=== PATIENT | female | born 1955 | race African-American/Black ===

== ENCOUNTER 2016-12-01 15:35 | Emergency (ER) | payer MEDICARE, MEDICAID ==
[~2016-12-01] VITALS: Ht 170.2 cm; Wt 105.0 kg
[~2016-12-01 15:35] MED LIST: BACTRIM DS1 TAB PO; CIPRO500 MG OR; GLIPIZIDE ER5 MG PO; HYDROCHLOROT12.5 MG OR; LORTAB 5 OR; LORTAB5 OR; LOSARTAN/HCT1 TA2 PO; LOTENSIN5 MG OR; METFORMIN500 MG OR; METFORMIN500 MG PO; NAPROSYN500 MG OR; NO HOME MEDS; NORCO1 TA1 PO; PROTONIX40 M2 PO; PYRIDIUM200 MG OR; TOUJEO SOL300 UNIT/M SC; UNKNOWN BP MED; ZPAK OR
[2016-12-01 16:39] VITALS: BP 157/89
== END 2016-12-01 16:52 | disposition home or self-care (01) ==
LOC: ED 15:35
DX: E11.65 Type 2 diabetes mellitus with hyperglycemia (principal); I10 Essential (primary) hypertension; E03.9 Hypothyroidism, unspecified; F17.210 Nicotine dependence, cigarettes, uncomplicated; Z79.4 Long term (current) use of insulin; Z59.1 Inadequate housing

== ENCOUNTER 2016-12-02 10:53 | Emergency (ER) | payer MEDICARE, MEDICAID ==
[~2016-12-02] VITALS: Ht 170.2 cm; Wt 105.0 kg
[2016-12-02 11:30] VITALS: BP 166/87
== END 2016-12-02 11:30 | disposition home or self-care (01) ==
LOC: ED 10:53
DX: E11.9 Type 2 diabetes mellitus without complications (principal); I10 Essential (primary) hypertension; E03.9 Hypothyroidism, unspecified; F17.210 Nicotine dependence, cigarettes, uncomplicated; Z79.4 Long term (current) use of insulin; Z59.1 Inadequate housing

== ENCOUNTER 2016-12-19 12:36 | Emergency (ER) | payer OTHER, MEDICARE, MEDICAID ==
[~2016-12-19] VITALS: Ht 170.2 cm; Wt 104.5 kg
[2016-12-19] MEDS ORDERED: LORTAB 5-325 MG1 TAB PO (12:46)
[2016-12-19] MEDS ORDERED: EC-NAPROSYN500 MG PO (12:46)
[2016-12-19 14:42] VITALS: BP 160/80
== END 2016-12-19 13:46 | disposition home or self-care (01) | DRG 605 ==
LOC: ED 12:36
DX: S80.02XA Contusion of left knee, initial encounter (principal); M25.461 Effusion, right knee; V43.62XA Car passenger injured in collision with other type car in traffic accident, initial encounter; Y92.481 Parking lot as the place of occurrence of the external cause

== ENCOUNTER 2018-07-19 21:45 | Emergency (ER) | payer MEDICARE, MEDICAID ==
[~2018-07-19] VITALS: Ht 170.2 cm; Wt 104.6 kg
[~2018-07-19 21:45] MED LIST changes: +EC-NAPROSYN500 MG PO; +LORTAB 5-325 MG1 TAB PO
[2018-07-19] MEDS ORDERED: PERCOCET 5/325M1 TAB PO (22:57)
[2018-07-19] MEDS ORDERED: GENTAMICIN0.3 % OD (22:57)
[2018-07-19 23:25] VITALS: BP 152/77
== END 2018-07-19 23:21 | disposition home or self-care (01) ==
LOC: ED 21:45
DX: H10.9 Unspecified conjunctivitis (principal); I10 Essential (primary) hypertension; E11.9 Type 2 diabetes mellitus without complications; F17.200 Nicotine dependence, unspecified, uncomplicated

== ENCOUNTER 2020-12-11 14:33 | Emergency (ER) | payer OTHER, MEDICARE, MEDICAID ==
[~2020-12-11] VITALS: Ht 170.2 cm; Wt 104.5 kg
[~2020-12-11 14:33] MED LIST changes: +GENTAMICIN0.3 % OD; +PERCOCET 5/325M1 TAB PO
[2020-12-11 15:55] VITALS: BP 158/85
== END 2020-12-11 15:55 | disposition home or self-care (01) | DRG 563 ==
LOC: ED 14:33
DX: S46.912A Strain of unspecified muscle, fascia and tendon at shoulder and upper arm level, left arm, initial encounter (principal); I10 Essential (primary) hypertension; E11.9 Type 2 diabetes mellitus without complications; F17.200 Nicotine dependence, unspecified, uncomplicated; V43.52XA Car driver injured in collision with other type car in traffic accident, initial encounter; Z79.4 Long term (current) use of insulin

== ENCOUNTER 2021-05-06 07:54 | Inpatient (IN) | payer MEDICARE, MEDICAID ==
[~2021-05-06] VITALS: Ht 170.2 cm; Wt 91.0 kg
[2021-05-06 08:07] VITALS: BP 128/72
--- NOTE | 2021-05-06 08:19 | NUR ---
PT ESCORTED TO ROOM FOR EVALUATION OF ABDOMINAL PAIN, N/V/D SINCE TESTING POS FOR COVID TWO DAYS PRIOR
[2021-05-06 08:41] LABS: HEMATOCRIT 53.5 % (37.0-47.0); HEMOGLOBIN 17.5 g/dl (12.0-16.0); IMMATURE GRANULOCYTES 0.8 % (0.0-5.0); MEAN CELL VOLUME 94.7 fL CALC (80.0-100.0); MEAN CORPUSCULAR HGB CONC 32.7 g/dL CAL (32.0-36.0); NEUT# 3.42 thou/uL (2.00-7.15); RED BLOOD COUNT 5.65 mill/uL (4.20-5.60); RED CELL DISTRI WIDTH 12.7 % (11.5-15.5)
[2021-05-06 08:45] LABS: ALKALINE PHOSPHATASE 101 u/l (38-126); BILIRUBIN, TOTAL 0.5 mg/dL (0.0-1.4); BUN 12 mg/dL (8-23); BUN/CREATININE RATIO 12 (12-20 (CALC)); CARBON DIOXIDE 26 mmol/l (22-30); CHLORIDE 95 mmol/l (95-108); GFR 55 ML/MIN (>=60 (CALC)); GFR FOR AFR.AMER. > 60 ML/MIN (>=60 (CALC)); LIPASE 180 u/l (23-300); TOTAL PROTEIN 7.1 g/dL (6.3-8.2)
[2021-05-06 08:46] VITALS: BP 126/74
[2021-05-06 08:46] LABS: URINE BILIRUBIN - DIPSTICK NEGATIVE (NEGATIVE); URINE BLOOD DIPSTICK SMALL (NEGATIVE); URINE COLOR YELLOW; URINE GLUCOSE - DIPSTICK NEGATIVE (NEGATIVE); URINE KETONE TRACE mg/dL (NEGATIVE); URINE LEUK ESTERASE NEGATIVE (NEGATIVE); URINE NITRITE - DIPSTICK NEGATIVE (Negative); URINE PROTEIN - DIPSTICK >=300 mg/dL (NEG-TRACE); URINE SPECIFIC GRAVITY 1.015; URINE UROBILINOGEN - DIPSTICK 0.2 E.U./dL (0.2)
[2021-05-06 08:47] LABS: URINE EPITHELIAL CELLS FEW EPI/hpf (0-FEW)
[2021-05-06 08:48] LABS: ALBUMIN 3.2 g/dL (3.2-5.0); ANION GAP 14 (6-22 (CALC)); POTASSIUM 5.3 mmol/l (3.5-5.1); SGOT/AST 86 u/l (9-36); SODIUM 130 mmol/l (137-146); URINE BACTERIA FEW hpf; URINE RBC 0-2 RBC/hpf (0-5); URINE WBC 0-2 WBC/hpf (0-5)
--- NOTE | 2021-05-06 09:20 | NUR ---
Reassessment of patient completed. No distress noted.
--- NOTE | 2021-05-06 10:20 | NUR ---
Reassessment of patient completed. No distress noted.
--- NOTE | 2021-05-06 11:40 | NUR ---
PT ADVISED OF WAIT TIME. UP TO BSC, ASKS TO SIT FOR A LITTLE LONGER. PT ASKS FOR SOMETHING TO EAT, INSTRUCTED THAT WILL HAVE TO CHECK WITH PHYSICIAN. WILL CHECK BACK SOON.
--- NOTE | 2021-05-06 12:30 | NUR ---
Reassessment of patient completed. No distress noted.
--- NOTE | 2021-05-06 13:13 | NUR ---
Reassessment of patient completed. No distress noted. PATIENT PROVIDED WITH LUNCH TRAY AND ASSISTED TO SIT IN THE CHAIR BEDSIDE FOR COMFORT. PATIENT ASSISTED TO AMBULATE TO STRETCH LEGS.
--- NOTE | 2021-05-06 14:56 | NUR ---
ACCUCHECK COMPLETED. RESULT 336. NOTIFIED MD OF STATUS. PATIENT ALERT AND ORIENTED AND ASSISTED TO USE BEDSIDE COMMODE
--- NOTE | 2021-05-06 15:30 | NUR ---
Reassessment of patient completed. No distress noted.
--- NOTE | 2021-05-06 16:30 | NUR ---
PATIENT ESCORTED UPSTAIRS TO ROOM VIA WHEELCHAIR AFTER CALLING REPORT TO NURSE.
--- NOTE | 2021-05-06 17:22 | NUR ---
RECEIVE REPORT FROM DONOVAN MCCABE ED NURSE. PATIENT ALERT AND ORIENTED X3 AT THIS TIME. NO DISTRESS RESPIRATORY NO REPORT PAIN. EDUCATED ABOUT ADMISSION, MEDICATIONS AND NURSE PLAN OF CARE. PATIENT REPORT UNDERSTAND.
[2021-05-06 19:00] VITALS: BP 152/67
--- NOTE | 2021-05-06 19:00 | NUR ---
RECEIVED SHIFT CHANGE REPORT FROM ESTELLE GORMAN. ASSUMED CARE OF PATIENT.
--- NOTE | 2021-05-06 23:56 | NUR ---
PT LAYING IN BED TURNED ON TO LEFT SIDE, RESTING WITH EYES CLOSED. NO S/SX OF DISTRESS OR DISCOMFORT OBSERVED AT THIS TIME. TELE MONITOR IN PLACE. BED IN LOWEST POSITION, BREAKES ON AND SIDE RAILS UP X 2. CALL LIGHT WITHIN REACH, WILL CONTINUE TO MONITOR.
[2021-05-07] VITALS: BP 116/53
[2021-05-07 04:00] VITALS: BP 148/75
--- NOTE | 2021-05-07 06:18 | NUR ---
THROUGH OPERATOR AT BEDSIDE, ASSISTING PT WITH A SHOWER.
[2021-05-07 06:32] LABS: MEAN CELL VOLUME 96.2 fL CALC (80.0-100.0); MEAN CORPUSCULAR HGB 30.9 pG CALC (26.0-32.0); MEAN CORPUSCULAR HGB CONC 32.1 g/dL CAL (32.0-36.0); NEUT# 4.92 thou/uL (2.00-7.15); RED BLOOD COUNT 5.82 mill/uL (4.20-5.60); RED CELL DISTRI WIDTH 12.8 % (11.5-15.5)
[2021-05-07 07:03] LABS: ALBUMIN 3.1 g/dL (3.2-5.0); ALKALINE PHOSPHATASE 84 u/l (38-126); ANION GAP 16 (6-22 (CALC)); BILIRUBIN, TOTAL 0.5 mg/dL (0.0-1.4); BUN 13 mg/dL (8-23); BUN/CREATININE RATIO 16 (12-20 (CALC)); C-REACTIVE PROTEIN 4.2 mg/dL (0-0.9); CARBON DIOXIDE 20 mmol/l (22-30); CHLORIDE 102 mmol/l (95-108); CREATININE 0.8 mg/dL (0.5-1.0); GFR > 60 ML/MIN (>=60 (CALC)); GFR FOR AFR.AMER. > 60 ML/MIN (>=60 (CALC)); POTASSIUM 5.4 mmol/l (3.5-5.1); SGOT/AST 73 u/l (9-36); SODIUM 133 mmol/l (137-146); TOTAL PROTEIN 6.9 g/dL (6.3-8.2)
[2021-05-07 07:08] LABS: IMMATURE GRANULOCYTES 0.7 % (0.0-5.0)
--- NOTE | 2021-05-07 08:00 | NUR ---
ASSESSMENT DONE. PATIENT IS ALERT AND ORIENT X3. PATIENT STATES SHE HAS BURNING IN HER ABD AND TOLD PATIENT I WILL NOTIFIED MD. RESPS EVEN AND UNLABORED. TELE IN PLACE. PATIENT DENIES ANY OTHER NEEDS AT THIS TIME. CALL LIGHT IN REACH.
[2021-05-07 11:15] VITALS: BP 149/80
[2021-05-07 15:33] VITALS: BP 162/89
--- NOTE | 2021-05-07 15:38 | NUR ---
nurse notified of patient blood pressure 169/89. will recheck.
--- NOTE | 2021-05-07 16:30 | NUR ---
PATIENT IS RESTING ON HER LEFT SIDE IN BED. PATIENT DENIES PAIN. PATIENT STATED SHE WAS ABLE TO SLEEP. PATIENT DENIES NEEDS. CALL LIGHT IN REACH.
--- NOTE | 2021-05-07 19:00 | NUR ---
RECIEVED REPORT FROM ESTELLE HASSAN
--- NOTE | 2021-05-07 19:00 | NUR ---
RECIEVED REPORT FROM ESTELLE MESA
[2021-05-07 19:51] VITALS: BP 150/71
--- NOTE | 2021-05-07 20:30 | NUR ---
PT RESTING IN SEMI FOWLERS POSITION. PT IS A/OX3. ASSESSMENT COMPLETED. RESPIRATIONS EVEN AND UNLABORED. LUNG SOUNDS CLEAR. HEART RHYTHM NORMAL WTIH TELE IN PLACE. BOWEL SOUNDS ACTIVE, LOOSE STOOLS REPORTED. PT INFORME OF NEEDED STOOL SAMPLE. #20G LAC INFUSING WITH IVF PER ORDER, SITE PATENT. SKIN INTACT. PT COMPLAINS OF BURNING IN ABD. PT TO BE MEDICATED PER EMAR. GLUCOSE MONITORING RESULTS IN 239, COVERAGE PER ORDER. PT DENIES OF ANY ADDITIONAL NEEDS. ALL SAFTEY PRECAUTIONS ARE IN PLACE WITH CALL LIGHT IN REACH. WILL CONTINUE TO MONITOR.
--- NOTE | 2021-05-07 22:56 | NUR ---
PT MEDICATED WITH BENTAYL AND TYLENOL AT THIS TIME DUE TO ABD PAIN. PT TOLERATED WELL
[2021-05-07 23:55] VITALS: BP 179/116
--- NOTE | 2021-05-07 23:55 | NUR ---
PT INFORMED BY ESTELLE FRYE THAT PT AFIB RVR ON TELE. PT RESTING IN SEMI FOWLERS POSITION. RESPIRATIONS EVEN AND UNLABORED. PT STATES NO CHANGES.VITALS OBTAINED. BP 161/112, HR 120-150. RT AT BEDSIDE FOR EKG. AFIB RVR PER EKG.
[2021-05-08] VITALS (42 sets, daily range): BP systolic 115–207; BP diastolic 58–113
--- NOTE | 2021-05-08 | NUR ---
PT TRANSFERED TO ICU BED 2 VIA STRETCHER ACCOMPAINED BY DOCUMENTATION SPECIALIST AND EKG TECHNICIAN WITH ALL PERSONAL BELONGINGS . REPORT GIVEN TO ESTELLE GRIJALVA.
--- NOTE | 2021-05-08 00:14 | NUR ---
LINDA, RN AT BEDSIDE TO ADMINISTER CARDIZEM PUSH. FIRST 10 ADMINISTERED. BP 188/72, HR 148. REMAINING 10 ADMINISTERED. BP 168/70, HR 102. PT REMAINS ASYMPTOMATIC. DENIES OF ANY CHANGES. O2 SAT 88-91%, 2L NC, O2 92-94% WILL CONTINUE TO MONITOR
--- NOTE | 2021-05-08 00:44 | NUR ---
PT REMAINS RESTING IN SEMI FOWLERS POSITION. PT REMAINS AFIB 120-130S ON MONITOR. BP 163/81, O2 95%. PT STATES BREATHING " FELLS BETTER" REMAINS ASYMPTOMIC. DR AJ INFORMED. ORDERS TO TRANSFER TO ICU ON CARDIZEM DRIP. ICU BED 2 OBTAINED.
--- NOTE | 2021-05-08 01:00 | NUR ---
PATIENT ARRIVED VIA HOSPITAL BED TO ROOM ICU2 ALERT ORIENTED X4 ACCOMPANIED BY NURSE BEDSIDE REPORT RECIEVED. PATIENT PLACED ON MONITOR CARDIAC RYHTHM SHOWS AFIB WITH RAPID VENTICULAR RESPONSE 150 -160'S CARIZEM DRIP INITIATED AT 10 MG/HR PATIENT FAMILY CALLED AND NOTIFIED OF TRANSFER TO ICU. COMFORT MEASURES PROVIDED TO REDUCE ANXIETY ORIENTED TO ROOM CALL LIGHT AND PLAN OF CARE.QUIET ROOM ENVIRONMENT PROVIDED TO PROMOTE REST.
--- NOTE | 2021-05-08 01:22 | NUR ---
PT TRANSFERED TO ICU BED 2 IN STABLE CONDITION VIA BED ACCOMAPINED BY AND HANSEL MORALES WITH ALL PERSONAL BELONINGS. REPORT GIVEN TO Abelino CARROLL RN.
--- NOTE | 2021-05-08 04:00 | NUR ---
RESTING QUIETLY IN BED WITH EYES CLOSED POSTURE RELAXED EARLY CHILDHOOD SHOWS AFIB HR 90 -100'S REMAIN ON CARDIZEM DRIP
--- NOTE | 2021-05-08 05:00 | NUR ---
ASSISTED TO BSC TO VOID TOLERATED WELL. INFANT TEACHER SHOW AFIB PATIENT ALERT AND ORIENTED X 4 NO SOB NOTED.
[2021-05-08 05:36] LABS: HEMATOCRIT 50.7 % (37.0-47.0); HEMOGLOBIN 16.4 g/dl (12.0-16.0); MEAN CELL VOLUME 95.8 fL CALC (80.0-100.0); MEAN CORPUSCULAR HGB CONC 32.3 g/dL CAL (32.0-36.0); RED BLOOD COUNT 5.29 mill/uL (4.20-5.60); RED CELL DISTRI WIDTH 12.8 % (11.5-15.5)
--- NOTE | 2021-05-08 05:37 | NUR ---
TALKING ON PHONE WITH FAMILY HR 103 NO ACUTED DISTRESS NOTED
[2021-05-08 05:56] LABS: ANION GAP 12 (6-22 (CALC)); BUN 11 mg/dL (8-23); BUN/CREATININE RATIO 15 (12-20 (CALC)); CARBON DIOXIDE 23 mmol/l (22-30); CHLORIDE 106 mmol/l (95-108); CREATININE 0.8 mg/dL (0.5-1.0); GFR > 60 ML/MIN (>=60 (CALC)); GFR FOR AFR.AMER. > 60 ML/MIN (>=60 (CALC)); POTASSIUM 4.9 mmol/l (3.5-5.1); SODIUM 136 mmol/l (137-146)
--- NOTE | 2021-05-08 07:15 | NUR ---
pt awake in bed; no apparent distress noted; pt offers no complaints; assessment completed at this time; pt alert and oriented; denies pain; no n/v noted; resp even and unlabored; lungs clear; skin color wnl; o2 per nc at 2L; hr irreg; strong pulses; no edema noted; afib on the monitor; abd soft with bs present; no bm noted per content writer; no urine to inspect at this time; bsc; #20 patent to lac with ivf/ cardizem gtt infusing at 15mg/hr; no redness or edema noted at site; pt assisted with repositioning to left side; pillow placed under right side; plan of care/ am meds explained; call light within reach; will continue to monitor
--- NOTE | 2021-05-08 08:05 | NUR ---
awake sitting at the side of the bed eating breakfast; afib on monitor; offers no complaints; iv intact; cardizem gtt at 15mg/hr; call light within reach; will continue to monitor
--- NOTE | 2021-05-08 10:10 | NUR ---
Dr Plunkett present at bedside to assess pt and discuss plan of care
--- NOTE | 2021-05-08 10:20 | NUR ---
pt awake conversing on cell phone; no apparent distress noted; afib on monitor; call light within reach; will continue to monitor
--- NOTE | 2021-05-08 12:00 | NUR ---
awake in bed; offers no complaints; iv intact and patent; cardizem gtt at 15mg/hr; afib on monitor; o2 per nc; call light within reach; will continue to monitor
--- NOTE | 2021-05-08 12:52 | NUR ---
afib with drops to upper 50s on monitor; cardizem gtt titrated; will continue to monitor
--- NOTE | 2021-05-08 14:00 | NUR ---
awake in bed; assisted to bsc; pt with exertional sob; afib on the monitor; iv intact; call light within reach; will continue to monitor
--- NOTE | 2021-05-08 14:00 | NUR ---
resting in bed with eyes closed; no distress noted; cardizem infusing; iv intact and patent; afib on monitor; call light within reach; will continue to monitor
--- NOTE | 2021-05-08 15:15 | NUR ---
cardizem gtt discontinued; afib 40s on the monitor; newswriter at bedside; will continue to monitor closely; bp stable
--- NOTE | 2021-05-08 16:04 | NUR ---
awake in bed; no apparent distress noted; pt offers no complaints; no dizziness noted; iv intact and patent; aflutter/fib on monitor; call light within reach; will continue to monitor
--- NOTE | 2021-05-08 18:04 | NUR ---
awake in bed; offers no complaints; no distress noted; iv intact and patent; afib on monitor; call light within reach
--- NOTE | 2021-05-08 19:15 | NUR ---
PT RESTING IN BED NO DISTRESS NOTED, CALLS REQUESTING SET UP FOR BATH STATES SHE HAD BM AND FEELS DIRTY SO SHE IS REQUESTING SET UP ASSIST THEN SHE WILL "BATH HERSELF" PT IS ALERT AND ORIENTED O2 AT 2L VIA NC DENIES PAIN OR N/V AT THIS TIME, TELE READING A FIB RATE IN THE 80'S, CARDIZEM GTT REMAINS OFF AT THIS TIME NO EDEMA NOTED, COMFORT MEASURES PROVIDED, IVF CONTINUE AT PRESCRIBED RATE. CALL WELL WITHIN REACH, PLAN OF CARE FOR SHIFT DISUSSED, WILL CONTINUE TO MONITOR.
--- NOTE | 2021-05-08 20:40 | NUR ---
PT CONVERTED TO SB, RATE 50'S, CALL FINNEGAN WITHIN REACH. SET UP ASSIST PROVIDED EARLIER, PT BATHED HERSELF AND PROVIDED COMPLETE LINEN CHANGE PROVIDED, COMFORT MEASURES PROVIDED, WILL CONTINUE TO MONITOR.
--- NOTE | 2021-05-08 21:20 | NUR ---
PT RESTING REPOSITIONS SELF FOR COMFORT, STATES SHE WOULD LIKE A MELATONIN LATER TONIGHT, INSTRUCTED TO CALL NURSE WHEN READY FOR IT, WILL CONTINUE TO MONITOR
--- NOTE | 2021-05-08 23:24 | NUR ---
PT MEDICATED EARLIER WITH MELATONIN REQUESTED/ORDERED, TELE CONTINUES READING SB RATE IN THE 40-50'S METOPROLOL HELD FOR THIS REASON, WILL CONTINUE TO MONITOR.
[2021-05-09] VITALS (13 sets, daily range): BP systolic 135–187; BP diastolic 63–109
--- NOTE | 2021-05-09 00:17 | NUR ---
PT RESTING WITH EYES CLOSED, NO S/S OF DISTRESS OR DISCOMFORT NOTED, IVF CONTINUE AT PRESCRIBED RATE, WILL CONTINUE TO MONITOR.
--- NOTE | 2021-05-09 02:01 | NUR ---
PT RESTING WITH EYES CLSOED, NO S/S OF DISTRESS IVF CONTINUE , CALL FINNEGAN WITHIN REACH.
--- NOTE | 2021-05-09 04:12 | NUR ---
PT RESTING WITH EYES CLSOED, NO S/S OF DISTRESS IVF CONTINUE , CALL FINNEGAN WITHIN REACH. REPOSITIONS SELF FOR COMFORT.
--- NOTE | 2021-05-09 05:11 | NUR ---
LAB AT BEDSIDE FOR BLOOD COLLECTION.
[2021-05-09 05:41] LABS: HEMATOCRIT 47.7 % (37.0-47.0); HEMOGLOBIN 15.5 g/dl (12.0-16.0); MEAN CORPUSCULAR HGB 31.5 pG CALC (26.0-32.0); MEAN CORPUSCULAR HGB CONC 32.5 g/dL CAL (32.0-36.0); RED BLOOD COUNT 4.92 mill/uL (4.20-5.60)
[2021-05-09 06:27] LABS: ANION GAP 8 (6-22 (CALC)); BUN 12 mg/dL (8-23); BUN/CREATININE RATIO 16 (12-20 (CALC)); CARBON DIOXIDE 23 mmol/l (22-30); CHLORIDE 108 mmol/l (95-108); CREATININE 0.8 mg/dL (0.5-1.0); GFR > 60 ML/MIN (>=60 (CALC)); GFR FOR AFR.AMER. > 60 ML/MIN (>=60 (CALC)); MAGNESIUM 1.8 mg/dL (1.6-2.3); POTASSIUM 4.6 mmol/l (3.5-5.1); SODIUM 135 mmol/l (137-146)
--- NOTE | 2021-05-09 06:27 | NUR ---
PT RESTING WITH EYES CLSOED, NO S/S OF DISTRESS IVF CONTINUE , CALL FINNEGAN WITHIN REACH. NO S/S OF DISTRESS OR DISCOMFORT.
--- NOTE | 2021-05-09 07:30 | NUR ---
pt resting in bed with eyes closed; no apparent distress noted; easily aroused; pt offers no complaints; pt alert and oriented; denies pain; no n/v noted; resp even and unlabored; lungs clear; skin color wnl; ra; hr reg; strong pulses; no edema noted; sb on monitor; abd soft with bs present; no bm noted per lyric writer; pt admits to voiding without complication; no urine to inspect at this time; bsc; #20 to lac patent with ivf infusing without complication; no redness or edema noted at site; plan of care/ meds explained; call light within reach; will continue to monitor
--- NOTE | 2021-05-09 08:00 | NUR ---
awake in bed eating breakfast; no apparent distress noted; will continue to monitor
--- NOTE | 2021-05-09 08:48 | NUR ---
pt converted to afib 120-140s; MD at bedside and aware
--- NOTE | 2021-05-09 08:55 | NUR ---
Dr Mae present at bedside to assess pt and discuss plan of care
--- NOTE | 2021-05-09 10:06 | NUR ---
pt awake in bed; no apparent distress noted; pt offers no complaints; iv intact and patent; afib on monitor; o2 per nc; call light within reach; will continue to monitor
--- NOTE | 2021-05-09 12:00 | NUR ---
pt sitting at the side of the bed eating lunch; no apparent distress noted; freq coughing noted; o2 per nc; D IVIS Shahid (cardiology) present at bedside; pt converted to NSR at this time; call light within reach; will continue to monitor
--- NOTE | 2021-05-09 14:10 | NUR ---
awake in bed; offers no complaints; iv intact; sr on monitor; call light within reach; will continue to monitor
--- NOTE | 2021-05-09 16:13 | NUR ---
awake in bed conversing on the cell phone; no apparent distress noted; iv intact; o2 per nc; sb on the monitor; call light within reach; will continue to monitor
--- NOTE | 2021-05-09 17:45 | NUR ---
awake in bed conversing on cell phone; no apparent distress noted; sr on monitor; offers no complaints; iv intact and patent; call light within reach
--- NOTE | 2021-05-09 20:15 | NUR ---
awake. denies resp distress. clinical research monitor shows sinus batla hr 58. #20 lac ns infusing @ 10cchr. po fluids taken well. voids per bsc. fall precautions cont.
--- NOTE | 2021-05-09 23:00 | NUR ---
melatonin 3mg po per request for sleep.
[2021-05-10 00:01] VITALS: BP 147/67
[2021-05-10 02:00] VITALS: BP 139/63
--- NOTE | 2021-05-10 02:00 | NUR ---
yes closed. no distress. straightening machine operator shows sinus balta hr 50
[2021-05-10 04:00] VITALS: BP 153/68
--- NOTE | 2021-05-10 05:00 | NUR ---
lab here. blood drawn.
[2021-05-10 05:52] LABS: HEMATOCRIT 47.5 % (37.0-47.0); HEMOGLOBIN 15.4 g/dl (12.0-16.0); IMMATURE GRANULOCYTES 1.5 % (0.0-5.0); MEAN CELL VOLUME 96.3 fL CALC (80.0-100.0); MEAN CORPUSCULAR HGB 31.2 pG CALC (26.0-32.0); MEAN CORPUSCULAR HGB CONC 32.4 g/dL CAL (32.0-36.0); NEUT# 5.07 thou/uL (2.00-7.15); RED BLOOD COUNT 4.93 mill/uL (4.20-5.60); RED CELL DISTRI WIDTH 12.9 % (11.5-15.5)
[2021-05-10 06:00] VITALS: BP 176/73
[2021-05-10 06:21] LABS: ALBUMIN 2.6 g/dL (3.2-5.0); ALKALINE PHOSPHATASE 62 u/l (38-126); ANION GAP 9 (6-22 (CALC)); BILIRUBIN, TOTAL 0.3 mg/dL (0.0-1.4); BUN 17 mg/dL (8-23); BUN/CREATININE RATIO 19 (12-20 (CALC)); C-REACTIVE PROTEIN 1.8 mg/dL (0-0.9); CARBON DIOXIDE 26 mmol/l (22-30); CHLORIDE 106 mmol/l (95-108); CREATININE 0.9 mg/dL (0.5-1.0); GFR > 60 ML/MIN (>=60 (CALC)); GFR FOR AFR.AMER. > 60 ML/MIN (>=60 (CALC)); POTASSIUM 4.5 mmol/l (3.5-5.1); SGOT/AST 37 u/l (9-36); SODIUM 137 mmol/l (137-146); TOTAL PROTEIN 5.8 g/dL (6.3-8.2)
--- NOTE | 2021-05-10 07:00 | NUR ---
REPORT RECEIVED FROM SAMIR CROSS. PT AWAKE ALERT AND APPROPRIATE. SITTING AT SOB, ASSISTED WITH MINIMAL ONE PERSON ASSISTANCE TO THE BSC. PT STATES "I AM READY TO GO HOME. I HAVE HAD ENOUGH, I AM UNCOMFORTABLE, IM TIED DOWN AND I NEED TO BE ABLE TO MOVE." ASSESSMENT PREFORMED, PT DENIES PAIN, SOB OR DISCOMFORT. CALL LIGHT WITHIN REACH. INSTRUCTED PT TO CALL FOR ASSISTANCE, VERBALIZES UNDERSTANDING.
[2021-05-10 09:00] VITALS: BP 197/87
--- NOTE | 2021-05-10 10:00 | NUR ---
PT OOB TO THE BS, ABLE TO PROVIDE SELF CARE. ABX THERAPY INITIATED. PULSE IS MAINTAINING BETWEEN 50-65 BPM. PT DENIES CP, SOB OR DISCOMFORT. STRONGLY VOICING TO GO HOME. INDICATES UNDERSTANDING OF ECHO TEST THAT IS PENDING. DENIES NEEDS OR CONCERNS. CALL LIGHT WITHIN REACH. INSTRUCTED PT TO CALL FOR ASSISTANCE, VERBALIZES UNDERSTANDING.
--- NOTE | 2021-05-10 13:02 | NUR ---
PT LYING IN BED. DENIES NEEDS AT THIS TIME. TOLERATED EATING HAM AND CHEESE WRAP. PT TALKING ON CELLPHONE. CALL LIGHT WITHIN REACH. INSTRUCTED PT TO CALL FOR ASSISTANCE, VERBALIZES UNDERSTANDING.
--- NOTE | 2021-05-10 15:26 | NUR ---
RASCHEL KNITTING MACHINE OPERATOR IN ROOM AT THIS TIME, PREFORMING PROCEDURE.
[2021-05-10 16:00] VITALS: BP 147/65
[2021-05-10] MEDS ORDERED: XARELTO20 MG PO (17:27)
[2021-05-10] MEDS ORDERED: AMLODIPINE BESYL5 MG PO (17:27)
[2021-05-10] MEDS ORDERED: LOPRESSOR 550 MG/TAB PO (17:28)
[2021-05-10] MEDS ORDERED: COZAAR100 MG PO (17:28)
[2021-05-10] MEDS ORDERED: DOXYCYCL HYC100 M4 PO (17:31)
--- NOTE | 2021-05-10 18:08 | NUR ---
PT DISCHARGED AT THIS TIME IN STABLE CONDITION, BELONGINGS PRESENT. EXPLANATION OF DISCHARGE EXPLAINED. PT MEDICATIONS REVIEWED. WHEELCHAIR PROVIDED. RIDE DOWNSTAIRS.
== END 2021-05-10 18:06 | disposition home or self-care (01) | DRG 177 ==
LOC: ED 07:54 → ED-I 15:10 → ED 15:32 → MS2 15:33 → ICU 15:33
PROVIDERS: Family Medicine; Internal Medicine; ADMIT Hospitalist; ATTEND Hospitalist
DX: U07.1 COVID-19 (principal); J12.82 Pneumonia due to coronavirus disease 2019; R11.2 Nausea with vomiting, unspecified; R19.7 Diarrhea, unspecified; I48.0 Paroxysmal atrial fibrillation; I10 Essential (primary) hypertension; E78.5 Hyperlipidemia, unspecified; F17.200 Nicotine dependence, unspecified, uncomplicated; E11.9 Type 2 diabetes mellitus without complications; Z79.4 Long term (current) use of insulin; Z60.2 Problems related to living alone; Z86.718 Personal history of other venous thrombosis and embolism
CPT/HCPCS: J1650; Q9967

== ENCOUNTER 2023-03-25 13:39 | Emergency (ER) | payer MEDICARE, MEDICAID ==
[~2023-03-25] VITALS: Ht 170.2 cm; Wt 105.0 kg
[~2023-03-25 13:39] MED LIST changes: +AMLODIPINE BESYL5 MG PO; +COZAAR100 MG PO; +DOXYCYCL HYC100 M4 PO; +FLEXERIL5 M1 PO; +LOPRESSOR 550 MG/TAB PO; +XARELTO20 MG PO
[2023-03-25 13:50] VITALS: BP 156/90
[2023-03-25] MEDS ORDERED: AMOX/K CLAV875 M1 PO (13:58)
[2023-03-25] MEDS ORDERED: TRAMADOL HYDROC50 M1 PO (13:58)
[2023-03-25 14:00] VITALS: BP 146/84
[2023-03-25 14:27] VITALS: BP 146/84
[2023-03-25 14:31] VITALS: BP 164/74
== END 2023-03-25 14:35 | disposition home or self-care (01) ==
LOC: ED 13:39
DX: K03.81 Cracked tooth (principal); I10 Essential (primary) hypertension; E11.9 Type 2 diabetes mellitus without complications; E78.5 Hyperlipidemia, unspecified; Z79.4 Long term (current) use of insulin; F17.200 Nicotine dependence, unspecified, uncomplicated

== ENCOUNTER 2023-10-05 15:43 | Emergency (ER) | payer MEDICARE, MEDICAID ==
[~2023-10-05] VITALS: Ht 170.2 cm; Wt 94.3 kg
[~2023-10-05 15:43] MED LIST changes: +AMOX/K CLAV875 M1 PO; +TRAMADOL HYDROC50 M1 PO
[2023-10-05 15:55] VITALS: BP 140/86
[2023-10-05 16:00] VITALS: BP 152/93
[2023-10-05] MEDS ORDERED: Pantoprazole Sodium 40 MG VIAL (Protonix) IV STA (16:17)
[2023-10-05] MEDS ORDERED: SODIUM CHLORIDE 0.9% 1,000 ML IV STA (16:17)
[2023-10-05] MEDS ORDERED: MORPHINE SULFATE 4 MG/ML VIAL IV STA ×2 (16:17→19:15)
[2023-10-05] MEDS ORDERED: ONDANSETRON HCl 4 MG/2 ML SDV IV STA (16:17)
[2023-10-05 16:31] VITALS: BP 142/85
[2023-10-05 16:48] LABS: BASO% 0.3 % (0-3); EOS% 0.9 % (0-8); HEMATOCRIT 41.9 % (37.0-47.0); HEMOGLOBIN 13.4 g/dl (12.0-16.0); IMMATURE GRANULOCYTES 0.2 % (0.0-5.0); LYMPH% 22.9 % (15-41); MEAN CELL VOLUME 90.7 fL CALC (80.0-100.0); MONO% 11.7 % (2-13); NEUT# 6.58 thou/uL (2.00-7.15); RED BLOOD COUNT 4.62 mill/uL (4.20-5.60); RED CELL DISTRI WIDTH 14.4 % (11.5-15.5)
[2023-10-05 17:00] VITALS: BP 164/98
[2023-10-05 17:05] LABS: ALBUMIN 3.9 g/dL (3.2-5.0); ANION GAP 11 (6-22 (CALC)); BUN 19 mg/dL (8-23); BUN/CREATININE RATIO 16 (12-20 (CALC)); CARBON DIOXIDE 27 mmol/l (22-30); CHLORIDE 107 mmol/l (95-108); CREATININE 1.2 mg/dL (0.5-1.0); ESTIMATED GFR 49 ML/MIN (>=90 (CALC)); LIPASE 103 u/l (23-300); POTASSIUM 4.3 mmol/l (3.5-5.1); SODIUM 141 mmol/l (137-146); TOTAL PROTEIN 8.2 g/dL (6.3-8.2)
[2023-10-05 17:08] LABS: ALKALINE PHOSPHATASE 674 u/l (38-126); BILIRUBIN, TOTAL 1.4 mg/dL (0.02-1.3); SGOT/AST 564 u/l (9-36)
[2023-10-05 17:47] VITALS: BP 128/73
[2023-10-05 18:00] VITALS: BP 127/71
[2023-10-05] MEDS ORDERED: PROMETHAZINE HCL 25 MG/ML AMP IV STA (19:15)
[2023-10-05] MEDS ORDERED: LACTATED RINGER'S 1,000 ML IV ONE (21:40)
[2023-10-05 22:04] LABS: URINE BLOOD DIPSTICK Negative (NEGATIVE); URINE GLUCOSE - DIPSTICK Negative (NEGATIVE); URINE KETONE 15 mg/dL (NEGATIVE); URINE LEUK ESTERASE Negative (NEGATIVE); URINE NITRITE - DIPSTICK Negative (Negative); URINE PROTEIN - DIPSTICK 30 mg/dL (NEG-TRACE)
[2023-10-05 22:05] LABS: URINE COLOR Yellow
[2023-10-05 22:06] LABS: URINE SQUAMOUS EPITHELIAL CELL FEW EPI/hpf (0-FEW)
[2023-10-06 01:12] VITALS: BP 127/71
== END 2023-10-06 01:14 | disposition short-term general hospital (02) ==
LOC: ED 15:43
PROVIDERS: Nurse Practitioner
DX: R11.2 Nausea with vomiting, unspecified (principal); R16.0 Hepatomegaly, not elsewhere classified; I10 Essential (primary) hypertension; E11.9 Type 2 diabetes mellitus without complications; E78.00 Pure hypercholesterolemia, unspecified; E89.0 Postprocedural hypothyroidism; Z20.822 Contact with and (suspected) exposure to COVID-19
CPT/HCPCS: J2470; Q9967